=== PATIENT | female | born 1970 | race Caucasian/White ===

== ENCOUNTER 2023-08-17 14:13 | Outpatient (OUT) | payer OTHER, BC, SELFPAY ==
--- NOTE | 2023-08-17 | XR_ITS ---
The [address] [address] Patient Name: SILVIANO MELLO MRN: [id number] date: 1970 Sex: F Assigned Patient Location: Current Patient Location: Accession/Order Number: [id number] Exam Date: 08/17/2023 14:21 Report Date: 08/18/2023 08:09 At the request of: PAO DAVIDSON Procedure: XR foot LT min 3V PROCEDURE: XR foot LT min 3V HISTORY: LEFT FOOT PAIN ; acute posterior plantar/heel pain since running 5 days ago COMPARISON: None. FINDINGS: BONES:No fracture, acute abnormality, or significant arthropathy. SOFT TISSUES:No visible soft tissue swelling. EFFUSION:None visible. OTHER: Negative. XR/XR foot LT min 3V IMPRESSION: 1. No abnormal or suspicious findings to account for patient's symptoms. Electronically authenticated by: RICK PALENCIA Date: 08/18/2023 08:09
== END 2023-08-17 14:14 | disposition home or self-care (01) ==
PROVIDERS: Visit Provider Podiatrist Foot & Ankle Surgery
DX: M84.375A Stress fracture, left foot, initial encounter for fracture (principal); M79.672 Pain in left foot
CPT/HCPCS: 73630

== ENCOUNTER 2023-08-22 07:42 | Outpatient (OUT) | payer OTHER, BC, SELFPAY ==
--- NOTE | 2023-08-22 07:44 | MR_ITS ---
The [address] [address] Patient Name: SILVIANO MELLO MRN: [id number] date: 1970 Sex: F Assigned Patient Location: MRI Current Patient Location: MRI Accession/Order Number: [id number] Exam Date: 08/22/2023 07:50 Report Date: 08/22/2023 09:39 At the request of: PAO DAVIDSON Procedure: MR ankle LT wo con EXAM: MR ankle LT wo con HISTORY: Calcaneal Stress Fracture. Posterior ankle and heel pain after running. COMPARISON: Left ankle x-rays from 08/17/2023. TECHNIQUE: Multiplanar and multisequence imaging of the ankle, hindfoot, and midfoot was performed without contrast. FINDINGS: There is an acute nondisplaced fracture involving the plantar aspect of the calcaneus posteriorly with the linear fracture measuring 2 cm in AP dimension and 1.5 cm transversely. There is moderate to marked bone marrow edema in the adjacent calcaneus. There is also an area of linear decreased T1 and T2 signal within the central and medial aspect of the distal tibial metaphysis measuring approximately 1.9 cm in AP dimension and 1.7 cm transversely. There is no significant bone marrow edema adjacent to this area, but this likely relates to a healing stress or insufficiency fracture in the distal tibia as well. The fibula appears intact. There is no OCD lesion involving the talar dome. There is relative preservation of the joint spaces. The Achilles tendon is intact with a normal insertion onto the calcaneus. No well-defined peroneal tendon tear is evident. A small amount of fluid tracks along the peroneal tendons consistent with mild tenosynovitis. The flexor and extensor tendons are intact including the posterior tibialis tendon. A small amount of fluid tracks along the posterior tibialis tendon. No acute ligament tear is evident. The anterior talofibular ligament, calcaneofibular ligament, posterior talofibular ligament, and superficial and deep components of the deltoid ligament appear intact. There is no cystic or solid mass in the region of the tarsal tunnel. There is no acute abnormality involving the plantar fascia. MR/MR ankle LT wo con IMPRESSION: 1. There is an acute nondisplaced incomplete fracture along the plantar aspect of the calcaneus posteriorly measuring 2 cm in AP dimension and 1.5 cm transversely with moderate to marked adjacent bone marrow edema. 2. There also appears to be a nondisplaced incomplete linear fracture in the distal femoral metaphysis centrally and medially measuring 1.9 x 1.7 cm without adjacent significant bone marrow edema likely related to a largely healed stress or insufficiency fracture in this area. Correlation for pain in the distal tibia would be helpful. 3. No focal tendon tear or acute ligament tear. A small amount of fluid tracks along the peroneal tendons and posterior tibialis tendon suggesting mild tenosynovitis. Electronically authenticated by: CATINA ALEX Date: 08/22/2023 09:39
== END 2023-08-22 07:43 | disposition home or self-care (01) ==
LOC: MRI 07:42
PROVIDERS: Visit Provider Podiatrist Foot & Ankle Surgery
DX: M84.372A Stress fracture, left ankle, initial encounter for fracture (principal)
CPT/HCPCS: 73721

== ENCOUNTER 2023-09-08 20:09 | Outpatient (REF) | payer OTHER, BC, SELFPAY ==
[2023-09-14 11:10] LABS: Age Gdln ACOG Testing Note (.); HPV Aptima Negative (Negative); IGP, Aptima HPV, rfx 16/18,45 Note (.)
== END 2023-09-08 20:10 | disposition home or self-care (01) ==
LOC: LAB 20:09
PROVIDERS: Visit Provider Physician Assistant
DX: Z01.419 Encounter for gynecological examination (general) (routine) without abnormal findings (principal)
CPT/HCPCS: 87624; G0145

== ENCOUNTER 2023-09-09 08:15 | Outpatient (OUT) | payer OTHER, BC, SELFPAY ==
--- NOTE | 2023-09-09 08:22 | XR_ITS ---
The [address] [address] Patient Name: SILVIANO MELLO MRN: [id number] date: 1970 Sex: F Assigned Patient Location: [facility] Current Patient Location: [facility] Accession/Order Number: [id number] Exam Date: 09/09/2023 08:30 Report Date: 09/09/2023 09:02 At the request of: LUANA DUMONT Procedure: XR DEXA axial skeleton EXAMINATION: XR DEXA axial skeleton HISTORY: Postmenopausal State Z78.0 COMPARISON: No relevant comparison available. TECHNIQUE: Dual-energy X-ray absorptiometry (DXA) was performed. FINDINGS: SPINE ANALYSIS: Average bone mineral density is 1.261 g/cm2. T-score (standard deviation relative to young adult mean): 0.7 . HIP ANALYSIS: Lowest bone mineral density is within the left femoral neck, 0.914 g/cm2. T-score (standard deviation relative to young adult mean): -0.9 . XR/XR DEXA axial skeleton IMPRESSION: [employer] Classification: Normal - Low Fracture Risk Electronically authenticated by: RICK PALENCIA Date: 09/09/2023 09:02
--- OUTSIDE RECORDS SUMMARY | 2023-09-09 08:24 | XMS_ITS | CCD ---
Author Organization [facility] Care Team Providers Care Lead Mobile Developer Name Role Phone DR LAURIE LEONARD Attending Unavailable DR LAURIE LEONARD Consulting Unavailable DR LAURIE LEONARD Admitting Unavailable LAURIE LEONARD Referring Unavailable LAURIE LEONARD Referring Unavailable Allergies Allergy Classification Reported Allergen(s) Allergy Type Date of Onset Reaction(s) Facility (1 source) Penicillin Drug Allergy [facility] Repository Problems Active Problems Problem Classification Problem Date Documented Da te Episodic/Chronic Other upper respiratory infections (1 source) Acute sinusitis, unspecified; Translations: [ACUTE SINUSITIS UNSPECIFIED] Onset: 05-05-2021 Episodic Unclassified (2 sources) CONTACT W/AND (SUSP) EXPOS COVID-19; Translations: [CONTACT W/AND (SUSP) EXPOS COVID-19] Onset: 05-05-2021 Viral infection (1 source) COVID-19; Translations: [COVID-19] Onset: 05-05-2021 Past or Other Problems Problem Classification Problem Date Documented Da te Episodic/Chronic Unclassified (1 source) CONTACT W/AND (SUSP) EXPOS COVID-19; Translations: [CONTACT W/AND (SUSP) EXPOS COVID-19] Onset: 04-29-2021 Results Test Name Value Interpretation Reference Range Facility BI MAMMOGRAM SCREENING TOMOS YNTHESIS BILATERALon 05-20-2023 BI MAMMOGRAM SCREENING TOMOSYNTHESIS BILATERAL This is a summary report. The complete report is available in the patient's medical record. If you cannot access the medical record, please contact the sending organization for a detailed fax or copy. EXAMINATION: BI MAMMOGRAM SCREENING TOMOSYNTHESIS BILATERAL CLINICAL HISTORY:Screening for breast cancer COMPARISON: January 15, 2022 . RESULT: Digital mammography and 3D tomosynthesis of bilateral breasts was performed. Density: Scattered fibroglandular density [2] There is no suspicious mass, asymmetry, architectural distortion, or calcification. Typically benign calcifications. Overall appearance stable. IMPRESSION: BIRADS 2 - Benign Follow-up: Routine Screening Mamm Board Certified Radiologists. Accredited by the ACR and FDA. MAMMOGRAPHY IS VERY IMPORTANT TO YOUR HEALTH. THE [employer] [place] GUIDELINES RECOMMEND THAT WOMEN 40 YEARS OF AGE AND OLDER SHOULD HAVE A MAMMOGRAM EVERY YEAR. A REMINDER LETTER WILL BE SENT AT THE APPROPRIATE TIME. THIS FACILITY UTILIZES A REMINDER SYSTEM TO ENSURE ALL PATIENTS RECEIVE REMINDER NOTIFICATIONS AT THE APPROPRIATE TIME BASED ON THE RECOMMENDATIONS OF THIS EXAM. THIS INCLUDES REMINDERS FOR ROUTINE SCREENING MAMMOGRAMS, DIAGNOSTIC MAMMOGRAMS IN WHICH THE PATIENT IS ASKED TO RETURN FOR ADDITIONAL VIEWS, OR OTHER BREAST IMAGING INTERVENTIONS WHEN APPROPRIATE. THE PATIENT WILL BE PLACED IN THE APPROPRIATE REMINDER SYSTEM INCLUDING A REMINDER AT THE APPROPRIATE TIME FOR ANY PENDING ADDITIONAL VIEWS. TRANSCRIBED BY: ELECTRONICALLY SIGNED BY: Brennan Nguyen MD Normal Not Available BI US BREAST LIMITED LEFTon 05-11-2023 BI US BREAST LIMITED LEFT This is a summary report. The complete report is available in the patient's medical record. If you cannot access the medical record, please contact the sending organization for a detailed fax or copy. Please see right breast ultrasound report from this same date. IMPRESSION: BIRADS 2 - Benign TRANSCRIBED BY: ELECTRONICALLY SIGNED BY: Brennan Nguyen MD Normal Not Available BI US BREAST LIMITED RIGHTon 05-11-2023 BI US BREAST LIMITED RIGHT This is a summary report. The complete report is available in the patient's medical record. If you cannot access the medical record, please contact the sending organization for a detailed fax or copy. FINDINGS: Sonographic evaluation of both breasts was performed, correlation made with the same day mammogram and prior mammogram of January 15, 2022. LEFT BREAST: No suspicious cystic or solid mass lesions, distortion or ductal dilation. RIGHT BREAST: 11 o'clock 3 x 4 mm cyst. No suspicious cystic or solid mass lesions, distortion, or ductal dilatation. IMPRESSION: BIRADS 2 - Benign TRANSCRIBED BY: ELECTRONICALLY SIGNED BY: Brennan Nguyen MD Normal Not Available SCREENING MAMMOGRAM W/MICHELLE, BILATERAL*on 01-15-2022 SCREENING MAMMOGRAM W/MICHELLE, BILATERAL* COMPARISON: July 09, 2019, November 30, 2017 TECHNIQUE: 2D and 3D Tomosynthesis of the right and left breasts was performed. FINDINGS: Breast composition demonstrates scattered fibroglandular densities. Overall appearance is stable. No suspicious microcalcifications, asymmetry, architectural distortion, or associated features are present. Please see right breast ultrasound report. IMPRESSION: BIRADS 2: Benign mammogram. Board Certified Radiologist. Accredited by the ACR and FDA. MAMMOGRAPHY IS VERY IMPORTANT TO YOUR HEALTH. THE CURRENT [employer] [place] AND [employer] GUIDELINES RECOMMENDS ANNUAL MAMMOGRAPHY BEGINNING AT AGE 40 THIS FACILITY USES A REMINDER SYSTEM TO ENSURE ALL PATIENTS RECEIVE REMINDER NOTIFICATIONS AT THE APPROPRIATE TIME BASED ON THE RECOMMENDATIONS OF THIS EXAM. EXAM: RIGHT BREAST US FINDINGS: Sonographic evaluation of the right breast was performed, correlation made with the same day mammogram and prior mammograms of July 09, 2019, December 01, 2017. 3 mm cyst 11 o'clock location 2 cm from the nipple. No suspicious nodule or mass. Examination demonstrates no suspicious cystic or solid mass lesions, distortion or ductal dilatation. Echotexture is normal for this age. IMPRESSION: BIRADS 2: Benign mammogram Report reported and signed by Brennan Nguyen on 01/15/2022 1306 Normal [facility] US Breast Complete, Righton 01-15-2022 US Breast Complete, Right Please see the mammogram report from this same date Report reported and signed by Brennan Nguyen on 01/15/[address] [facility] Covid-19 PCR ([facility])on 04-02 SARS-CoV-2 (COVID-19) RNA TUSHAR+probe Ql (Unsp spec) Detected Critically abnormal NOT DETECTED [facility] Comment on above: Result Comment: This test is not yet approved or cleared by the [place] FDA. When there are no FDA-approved or cleared tests available, and other criteria are met, FDA can make tests available under an emergency access mechanism called an Emergency Use Authorization (EUA). The EUA for this test is supported by the [place] of Health and Human Service's (HHS's) declaration that circumstances exist to justify the emergency use of in vitro diagnostics for the detection and/or diagnosis of the virus that causes COVID-19. This EUA will remain in effect (meaning this test can be used) for the duration of the COVID-19 declaration justifying emergency of IVDs, unless it is terminated or revoked by FDA (after which the test may no longer be used). Performed By: #### [facility] #### [facility] [address] [place] [address] Dr. Nandini Herbert INFLUENZA A AND B AGon 04-29 INFLUANEGH SEE BELOW Normal [facility] Comment on above: Result Comment: Nega tive for Flu A protein angiten. Infection due to Flu A cannot be ruled out. Flu A angiten in the sample may be below the detection limit of the test. Performed By: #### I [facility] #### [facility] [address] [place] [address] Dr. Nandini Herbert INFLUBNEG SEE BELOW Normal [facility] Comment on above: Result Comment: Nega tive for Flu B protein antigen. Infection due to Flu B cannot be ruled out. Flu B antigen in the sample may be below the detection limit of the test. Performed By: #### I NFLU[facility] #### [facility] [address] [place] [address] Dr. Nadnini Herbert INFLUENZA A AG Negative Normal NEGATIVE SEE COMMENT [facility] Comment on above: Performed By: #### I NFLUAB #### [facility] [address] [place] [address] Dr. Nandini Herbert INFLUENZA B AG Negative Normal NEGATIVE SEE COMMENT [facility] Comment on above: Performed By: #### I NFLUAB #### [facility] [address] [place] [address] Dr. Nandini Herbert INTERNAL CONTROLS Within Normal Limits Normal Wi thin Normal Limits [facility] Comment on above: Performed By: #### I NFLUAB #### [facility] [address] [place] [address] Dr. Nandini Herbert Encounters Encounter Date Encounter Type Care Provider Facility Start: 05-20-2023 End: 05-21-2023 ambulatory LAURIE LEONARD Not Available Start: 04-29-2021 End: 04-29-[address] LAURIE LEONARD Facility: Payers Date Payer Category Payer Unknown [id number] 1970 Unknown [id number] 2.16.84 [id number] 1970 Unknown [id number] 2.16.84 [id number] 1970 Unknown [id number] 2.16.84 [id number] 1970 Unknown [id number] 2.16.84 [id number] 1960 Unknown [id number] Summary Purpose Family History No Family History Records FoundNo Family History Records FoundNo Family History Records Found Advance Directives No Advanced Directives Records FoundNo Advanced Directives Records FoundNo Advanced Directives Records Found Additional Source Comments INFORMATION SOURCE (unrecogn ized section and content) DATE CREATED AUTHOR 05/06/2021 [facility] DATE CREATED AUTHOR AUTHOR'S ORGANIZ ATION 01/30/2022 [facility] dical Specialist DATE CREATED AUTHOR AUTHOR'S ORGANIZ ATION 05/24/2023 [facility] dical Specialists EPIC FOR RECORDS PERTAINING TO PATIENTS WHO ARE OR HAVE BEEN ENROLLED IN A CHEMICAL DEPENDENCY/SUBSTANCEABUSE PROGRAM, SOME INFORMATION MAY BE OMITTED. This clinical summary was aggregated from multiple sources. Caution should be exercised in using it in the provision of clinical care. This summary normalizes information from multiple sources, and as a consequence, information in this document may materially change the coding, format and clinical context of patient data. In addition, data may be omitted in some cases. CLINICAL DECISIONS SHOULD BE BASED ON THE PRIMARY CLINICAL RECORDS. [facility]. provides no warranty or guarantee of the accuracy or completeness of information in this document.
== END 2023-09-09 08:16 | disposition home or self-care (01) ==
LOC: RAD 08:18
PROVIDERS: Visit Provider Physician Assistant
DX: Z78.0 Asymptomatic menopausal state (principal)
CPT/HCPCS: 77080

== ENCOUNTER 2023-10-04 09:56 | Outpatient (OUT) | payer OTHER, BC, SELFPAY ==
--- NOTE | 2023-10-04 | XR_ITS ---
The [address] [address] Patient Name: SILVIANO MELLO MRN: [id number] date: 1970 Sex: F Assigned Patient Location: Current Patient Location: Accession/Order Number: [id number] Exam Date: 10/04/2023 09:57 Report Date: 10/05/2023 12:20 At the request of: PAO DAVIDSON Procedure: XR calcaneus LT min 2V PROCEDURE: XR calcaneus LT min 2V HISTORY: LEFT FOOT PAIN COMPARISON: XR foot left 08/17/2023, MRI ankle left 08/22/2023 FINDINGS: BONES:Interval development of band of sclerosis extending cephalad from the plantar surface of the posterior aspect of the calcaneus. SOFT TISSUES:No visible soft tissue swelling. EFFUSION:None visible. OTHER: Negative. XR/XR calcaneus LT min 2V IMPRESSION: 1. Evidence of early healing changes involving nondisplaced posterior calcaneal fracture. Electronically authenticated by: RICK PALENCIA Date: 10/05/2023 12:20
--- OUTSIDE RECORDS SUMMARY | 2023-10-04 10:15 | XMS_ITS | CCD ---
Author Organization [facility] Care Team Providers Care Copyright Manager Name Role Phone DR LAURIE LEONARD Attending Unavailable DR LAURIE LEONARD Consulting Unavailable DR LAURIE LEONARD Admitting Unavailable LAURIE LEONARD Referring Unavailable LAURIE LEONARD Referring Unavailable LUANA DUMONT Attending Unavailable Allergies Allergy Classification Reported Allergen(s) Allergy Type Date of Onset Reaction(s) Facility (1 source) Penicillin Drug Allergy [facility] Repository Problems Active Problems Problem Classification [...] IS VERY IMPORTANT TO YOUR HEALTH. THE [employer] GUIDELINES RECOMMEND THAT WOMEN 40 [...] VERY IMPORTANT TO YOUR HEALTH. THE CURRENT [employer] AND [employer]IVE CANCER [...] by Brennan Nguyen on 01/15/2022 1306 Normal [facility] [employer] US Breast Complete, Righton 01-15-2022 US Breast Complete, Right Please see the mammogram report from this same date Report reported and signed by Brennan Nguyen on 01/15/2022 1307 Normal [facility] Specialist Covid-19 PCR ([facility])on 04-02 SARS-CoV-2 (COVID-19) RNA TUSHAR+probe Ql (Unsp spec) Detected Critically abnormal NOT DETECTED [facility] Comment on above: Result Comment: This test is not yet approved or cleared by the [place] FDA. When there are no FDA-approved or cleared tests available, and other criteria are met, FDA can make tests available under an emergency access mechanism called an Emergency Use Authorization (EUA). The EUA for this test is supported by the [place] of Health and Human Service's (HHS's) declaration [...] longer be used). Performed By: #### C VDTB #### [facility] [address] [place] [address] Dr. Nandini Herbert INFLUENZA A AND B AGon 04-29 INFLUANE SEE BELOW Normal [facility] Comment on above: Result Comment: Nega tive for Flu A protein angiten. Infection due to Flu A cannot be ruled out. Flu A angiten in the sample may be below the detection limit of the test. Performed By: #### I [facility] #### [facility] [address] [place] [address] Dr. [facility] SEE BEL[facility] Normal [facility] Comment on above: Result Comment: Nega tive for Flu B protein antigen. Infection due to Flu B cannot be ruled out. Flu B antigen in the sample may be below the detection limit of the test. Performed By: #### I NFLUAB #### [facility] [address] [place] [address] Dr. Nandini Herbert INFLUENZA A AG Negative Normal NEGATIVE SEE COMMENT [facility] Comment on above: Performed By: #### I NFLUAB #### [facility] [address] [place] [address] Dr. Nandini Herbert INFLUENZA B AG Negative Normal NEGATIVE SEE COMMENT [facility] Comment on above: Performed By: #### I NFLUAB #### [facility] [address] [place] [address] Dr. Nandini Herbert INTERNAL CONTROLS Within Normal Limits Normal Wi thin Normal Limits [facility] Comment on above: Performed By: #### I NFLUAB #### [facility] [address] [place] [address] Dr. Nandini Herbert Encounters Encounter Date Encounter Type Care Provider Facility Start: 09-08-2023 End: 09-08-2023 ambulatory LUANA DUMONT Not Available Start: 05-20-2023 End: 05-21-2023 ambulatory LAURIE LEONARD Not Available Start: 04-29-2021 End: 04-29-[address] LAURIE LEONARD Facility: Payers Date Payer Category Payer Unknown [id number] 1970 Unknown [id number] 2.16.84 [id number] 1970 Unknown [id number] 2.16.84 [id number] 1970 Unknown [id number] 2.16.84 [id number] 1970 Unknown [id number] 2.16.84 [id number] 1970 Unknown [id number] 2.16.84 [id number] 1960 Unknown [id number] Summary Purpose Family History No Family History Records FoundNo Family History Records FoundNo Family History Records Found Advance Directives No Advanced Directives Records FoundNo Advanced Directives Records FoundNo Advanced Directives Records Found Additional Source Comments INFORMATION SOURCE (unrecogn ized section and content) DATE CREATED AUTHOR 05/06/2021 [facility] DATE CREATED AUTHOR AUTHOR'S ORGANIZ ATION 01/30/2022 [facility] dical Specialist DATE CREATED AUTHOR AUTHOR'S ORGANIZ ATION 09/10/2023 [facility] dical Specialists [facility] FOR RECORDS PERTAINING TO PATIENTS WHO ARE [...] BE BASED ON THE PRIMARY CLINICAL RECORDS. [facility] [email or web address] [facility]. provides no warranty or guarantee of the accuracy or completeness of information in this document.
== END 2023-10-04 09:57 | disposition home or self-care (01) ==
LOC: EC 09:56
PROVIDERS: Visit Provider Podiatrist Foot & Ankle Surgery
DX: M79.672 Pain in left foot (principal); M84.375D Stress fracture, left foot, subsequent encounter for fracture with routine healing
CPT/HCPCS: 73650

== ENCOUNTER 2023-10-25 14:09 | Outpatient (OUT) | payer OTHER, BC, SELFPAY ==
--- NOTE | 2023-10-25 | XR_ITS ---
The [address] [address] Patient Name: SILVIANO MELLO MRN: [id number] date: 1970 Sex: F Assigned Patient Location: Current Patient Location: Accession/Order Number: [id number] Exam Date: 10/25/2023 14:20 Report Date: 10/25/2023 15:50 At the request of: PAO DAVIDSON Procedure: XR foot LT min 3V PROCEDURE: XR foot LT min 3V COMPARISON: 08/17/2023, 10/04/2023 HISTORY: LEFT FOOT PAIN FINDINGS: BONES:Stable focal sclerosis in the anterior calcaneus consistent with a stable healing fracture. No additional fracture or dislocation. No significant degenerative changes SOFT TISSUES:Negative. No visible soft tissue swelling. EFFUSION:None visible. OTHER: Negative. XR/XR foot LT min 3V IMPRESSION: Posterior calcaneal sclerosis consistent with a stable healing fracture Electronically authenticated by: SUSAN CRAFT Date: 10/25/2023 15:50
--- OUTSIDE RECORDS SUMMARY | 2023-10-25 14:13 | XMS_ITS | CCD ---
Author Organization [facility] Care Team Providers Care Manager Credit Risk Name Role Phone DR LAURIE LEONARD Attending Unavailable DR LAURIE LEONARD Consulting Unavailable DR LAURIE LEONARD Admitting Unavailable LAURIE LEONARD Referring Unavailable LAURIE LEONARD Referring Unavailable LUANA DUMONT Attending Unavailable Allergies Allergy Classification Reported Allergen(s) Allergy Type Date of Onset Reaction(s) Facility (1 source) Penicillin Drug Allergy The [facility] Repository Problems Active Problems Problem Classification [...] IS VERY IMPORTANT TO YOUR HEALTH. THE [employer] GUIDELINES RECOMMEND THAT WOMEN 40 [...] VERY IMPORTANT TO YOUR HEALTH. 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)on 04-02 SARS-CoV-2 (COVID-19) RNA TUSHAR+probe Ql (Unsp spec) Detected Critically abnormal NOT DETECTED The [facility] Comment on above: Result Comment: This test is not yet approved or cleared by the [place] FDA. When there are no FDA-approved or cleared tests available, and other criteria are met, FDA can make tests available under an emergency access mechanism called an Emergency Use Authorization (EUA). The EUA for this test is supported by the [place] of Health and Human Service's (HHS's) declaration [...] used). Performed By: #### C VDTB #### [facility] [address] [place] [address] Dr. Nandini Herbert INFLUENZA A AND B AGon 04-29 INFLUANE SEE BELOW Normal The [facility] Comment on above: Result Comment: Nega tive for Flu A protein angiten. Infection due to Flu A cannot be ruled out. Flu A angiten in the sample may be below the detection limit of the test. Performed By: #### I NFLUAB #### [facility] [address] [place] [address] Dr. [facility]ini [facility] SEE BELOW Normal The [facility] Comment on above: Result Comment: Nega tive for Flu B protein antigen. Infection due to Flu B cannot be ruled out. Flu B antigen in the sample may be below the detection limit of the test. Performed By: #### I NFLUAB #### [facility] [address] [place] [address] Dr. Nandini Herbert INFLUENZA A AG Negative Normal NEGATIVE SEE COMMENT The [facility] Comment on above: Performed By: #### I NFLUAB #### [facility] [address] [place] [address] Dr. Nandini Herbert INFLUENZA B AG Negative Normal NEGATIVE SEE COMMENT The [facility] Comment on above: Performed By: #### I NFLUAB #### [facility] [address] [place] [address] Dr. Nandini Herbert INTERNAL CONTROLS Within Normal Limits Normal Wi thin Normal Limits The [facility] Comment on above: Performed By: #### I NFLUAB #### [facility] [address] [place] [address] Dr. Nandini Herbert Encounters Encounter Date Encounter Type Care Provider Facility Start: 09-08-2023 End: 09-08-2023 ambulatory LUANA DUMONT Not Available Start: 05-20-2023 End: 05-21-2023 ambulatory LAURIE LEONARD Not Available Start: 04-29-2021 End: 04-29-[address] LAURIE LEONARD Facility: Payers Date Payer Category Payer Unknown [id number] 1970 Unknown [id number] 2.16.84 [id number] 1970 Unknown [id number] 2.16.84 [id number] 1970 Unknown [id number] 2.16.84 [id number] 1970 Unknown [id number] 2.16.84 [id number] 1970 Unknown [id number] 2.16.84 [id number] 1959 Unknown [id number] Summary Purpose Family History No Family History Records FoundNo Family History Records FoundNo Family History Records Found Advance Directives No Advanced Directives Records FoundNo Advanced Directives Records FoundNo Advanced Directives Records Found Additional Source Comments INFORMATION SOURCE (unrecogn ized section and content) DATE CREATED AUTHOR 05/06/2021 [facility] pital DATE CREATED AUTHOR AUTHOR'S ORGANIZ ATION 01/30/2022 [facility] dical Specialist DATE CREATED AUTHOR AUTHOR'S ORGANIZ ATION 09/10/2023 [facility] dical Specialists [facility] FOR RECORDS PERTAINING TO PATIENTS WHO ARE [...] BE BASED ON THE PRIMARY CLINICAL RECORDS. [facility] [employer] [facility]. provides no warranty or guarantee of the accuracy or completeness of information in this document.
== END 2023-10-25 14:10 | disposition home or self-care (01) ==
LOC: EC 14:09
PROVIDERS: Visit Provider Podiatrist Foot & Ankle Surgery
DX: M79.672 Pain in left foot (principal); S92.025D Nondisplaced fracture of anterior process of left calcaneus, subsequent encounter for fracture with routine healing
CPT/HCPCS: 73630

== ENCOUNTER 2023-11-22 13:03 | Outpatient (OUT) | payer OTHER, BC, SELFPAY ==
--- NOTE | 2023-11-22 | XR_ITS ---
The [address] [address] Patient Name: SILVIANO MELLO MRN: [id number] date: 1970 Sex: F Assigned Patient Location: Current Patient Location: Accession/Order Number: [id number] Exam Date: 11/22/2023 13:05 Report Date: 11/23/2023 07:19 At the request of: PAO DAVIDSON Procedure: XR foot LT min 3V PROCEDURE: XR foot LT min 3V COMPARISON: 10/25/2023 HISTORY: LEFT FOOT PAIN FINDINGS: BONES:Again demonstrated is focal sclerosis along the posterior inferior calcaneus likely representing a healing nondisplaced fracture. No new fracture or dislocation. No significant degenerative changes SOFT TISSUES:Negative. No visible soft tissue swelling. EFFUSION:None visible. OTHER: Negative. XR/XR foot LT min 3V IMPRESSION: Stable healing calcaneus fracture Electronically authenticated by: SUSAN CRAFT Date: 11/23/2023 07:19
--- OUTSIDE RECORDS SUMMARY | 2023-11-22 13:21 | XMS_ITS | CCD ---
Author Organization [facility] Care Team Providers Care Hurl Shaker Name Role Phone DR LAURIE LEONARD Attending Unavailable DR LAURIE LEONARD Consulting Unavailable DR LAURIE LEONARD Admitting Unavailable LAURIE LEONARD Referring Unavailable LAURIE LEONARD Referring Unavailable LUANA DUMONT Attending Unavailable Allergies Allergy Classification Reported Allergen(s) Allergy Type Date of Onset Reaction(s) Facility (1 source) Penicillin Drug Allergy The [facility] Repository Problems Active Problems Problem Classification [...] IS VERY IMPORTANT TO YOUR HEALTH. THE [employer] GUIDELINES RECOMMEND THAT WOMEN 40 [...] VERY IMPORTANT TO YOUR HEALTH. 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)on 04-02 SARS-CoV-2 (COVID-19) RNA TUSHAR+probe Ql (Unsp spec) Detected Critically abnormal NOT DETECTED The [facility] Comment on above: Result Comment: This test is not yet approved or cleared by the [place] FDA. When there are no FDA-approved or cleared tests available, and other criteria are met, FDA can make tests available under an emergency access mechanism called an Emergency Use Authorization (EUA). The EUA for this test is supported by the [place] of Health and Human Service's (HHS's) declaration [...] used). Performed By: #### C VDTB #### [facility] [address] [place] [address] Dr. Nandini Herbert INFLUENZA A AND B AGon 04-29 INFLUANE SEE BELOW Normal The [facility] Comment on above: Result Comment: Nega tive for Flu A protein angiten. Infection due to Flu A cannot be ruled out. Flu A angiten in the sample may be below the detection limit of the test. Performed By: #### I NFLUAB #### [facility] [address] [place] [address] Dr. Nandini [facility] SEE BELOW Normal The [facility] Comment on above: Result Comment: Nega tive for Flu B protein antigen. Infection due to Flu B cannot be ruled out. Flu B antigen in the sample may be below the detection limit of the test. Performed By: #### I NFLUAB #### [facility] [address] [place] [address] Dr. Nandini Herbert INFLUENZA A AG Negative Normal NEGATIVE SEE COMMENT The [facility] Comment on above: Performed By: #### I NFLUAB #### [facility] [address] [place] [address] Dr. Nandini Herbert INFLUENZA B AG Negative Normal NEGATIVE SEE COMMENT The [facility] Comment on above: Performed By: #### I NFLUAB #### [facility] [address] [place] [address] Dr. Nandiin Herbert INTERNAL CONTROLS Within Normal Limits Normal Wi thin Normal Limits The [facility] Comment on above: Performed By: #### I NFLUAB #### [facility] [address] [place] [address] Dr. Nandini Herbert Encounters Encounter Date Encounter Type Care Provider Facility Start: 09-08-2023 End: 09-08-2023 ambulatory LUANA DUMONT Not Available Start: 05-20-2023 End: 05-21-2023 ambulatory LAURIE LEONARD Not Available Start: 04-29-2021 End: 04-29-[address] LAURIE LEONARD Facility: Payers Date Payer Category Payer Unknown [id number] 1970 Unknown [id number] 2.16.84 [id number] 1970 Unknown [id number] 2.16.84 [id number] 1970 Unknown [id number] 2.16.84 [id number] 1970 Unknown [id number] 2.16.84 [id number] 1970 Unknown [id number] 2.16.84 [id number] 1959 Unknown [id number] Summary Purpose Family History No Family History Records FoundNo Family History Records FoundNo Family History Records Found Advance Directives No Advanced Directives Records FoundNo Advanced Directives Records FoundNo Advanced Directives Records Found Additional Source Comments INFORMATION SOURCE (unrecogn ized section and content) DATE CREATED AUTHOR 05/06/2021 [facility] pital DATE CREATED AUTHOR AUTHOR'S ORGANIZ ATION 01/30/2022 [facility] dical Specialist DATE CREATED AUTHOR AUTHOR'S ORGANIZ ATION 09/10/2023 [facility] dical Specialists [facility] FOR RECORDS PERTAINING TO PATIENTS [...] BE BASED ON THE PRIMARY CLINICAL RECORDS. [facility] [employer] [facility]. provides no warranty or guarantee of the accuracy or completeness of information in this document.
== END 2023-11-22 13:04 | disposition home or self-care (01) ==
LOC: EC 13:03
PROVIDERS: Visit Provider Podiatrist Foot & Ankle Surgery
DX: M84.375D Stress fracture, left foot, subsequent encounter for fracture with routine healing (principal)
CPT/HCPCS: 73630

== ENCOUNTER 2024-01-27 15:20 | Outpatient (OUT) | payer OTHER, BC, SELFPAY ==
--- NOTE | 2024-01-27 | XR_ITS ---
The [address] [address] Patient Name: SILVIANO MELLO MRN: [id number] date: 1970 Sex: F Assigned Patient Location: [facility] Current Patient Location: Accession/Order Number: [id number] Exam Date: 01/27/2024 15:25 Report Date: 01/28/2024 06:56 At the request of: LAURIE LEONARD Procedure: XR ankle LT min 3V PROCEDURE: XR ankle LT min 3V HISTORY: ANKLE SPRAIN S93.409A COMPARISON: None. FINDINGS: BONES:No fracture, acute abnormality, or significant arthropathy. SOFT TISSUES:Mild soft tissue swelling; lateral greater than medial. EFFUSION:None visible. OTHER: Negative. XR/XR ankle LT min 3V IMPRESSION: 1. Mild swelling suggesting soft tissue injury. 2. No acute bone abnormality or significant degenerative joint disease. Electronically authenticated by: RICK PALENCIA Date: 01/28/2024 06:56
--- OUTSIDE RECORDS SUMMARY | 2024-01-27 15:23 | XMS_ITS | CCD ---
Author Organization [facility] Care Team Providers Care Drill Operator Automatic Name Role Phone DR LAURIE LEONARD Attending Unavailable DR LAURIE LEONARD Consulting Unavailable DR LAURIE LEONARD Admitting Unavailable LAURIE LEONARD Referring Unavailable LAURIE LEONARD Referring Unavailable LUANA DUMONT Attending Unavailable Allergies Allergy Classification Reported Allergen(s) Allergy Type Date of Onset Reaction(s) Facility (1 source) Penicillin Drug Allergy The [facility] Repository Problems Active Problems Problem Classification [...] IS VERY IMPORTANT TO YOUR HEALTH. THE [place] CAN[employer] SOCIETY GUIDELINES RECOMMEND THAT WOMEN 40 [...] VERY IMPORTANT TO YOUR HEALTH. 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 When there are no FDA-approved or cleared tests available, and other criteria are met, FDA can make tests available under an emergency access mechanism called an Emergency Use Authorization (EUA). The EUA for this test is supported by the [employer] Professor of Health and Human Service's (HHS's) declaration [...] used). Performed By: #### C VDTB #### [facility] [address] [place] [address] Dr. Nandini Herbert INFLUENZA A AND B AGon 04-29 INFLUANE SEE BELOW Normal The [facility] Comment on above: Result Comment: Nega tive for Flu A protein angiten. Infection due to Flu A cannot be ruled out. Flu A angiten in the sample may be below the detection limit of the test. Performed By: #### I NFLUAB #### [facility] [address] [place] [address] Dr. Nandini Herbert INFLUBNUNIVERSAL HEALTH SERVICES SEE BELOW Normal The [facility] Comment on above: Result Comment: Nega tive for Flu B protein antigen. Infection due to Flu B cannot be ruled out. Flu B antigen in the sample may be below the detection limit of the test. Performed By: #### I NFLUAB #### [facility] [address] [place] [address] Dr. Nandini Herbert INFLUENZA A AG Negative Normal NEGATIVE SEE COMMENT The [facility] Comment on above: Performed By: #### I NFLUAB #### [facility] [address] [place] [address] Dr. Nandini Herbert INFLUENZA B AG Negative Normal NEGATIVE SEE COMMENT The [facility] Comment on above: Performed By: #### I NFLUAB #### [facility] [address] [place] [address] Dr. Nandini Herbert INTERNAL CONTROLS Within Normal Limits Normal Wi thin Normal Limits The [facility] Comment on above: Performed By: #### I NFLUAB #### [facility] [address] [place] [address] Dr. Nandini Herbert Encounters Encounter Date Encounter Type Care Provider Facility Start: 09-08-2023 End: 09-08-2023 ambulatory LUANA DUMONT Not Available Start: 05-20-2023 End: 05-21-2023 ambulatory LAURIE LEONARD Not Available Start: 04-29-2021 End: 04-29-[address] LAURIE LEONARD Facility: Payers Date Payer Category Payer Unknown [id number] 1970 Unknown [id number] 2.16.84 [id number] 1970 Unknown [id number] 2.16.84 [id number] 1970 Unknown [id number] 2.16.84 [id number] 1970 Unknown [id number] 2.16.84 [id number] 1970 Unknown [id number] 2.16.84 [id number] 1960 Unknown [id number] Summary Purpose Family History No Family History Records FoundNo Family History Records FoundNo Family History Records Found Advance Directives No Advanced Directives Records FoundNo Advanced Directives Records FoundNo Advanced Directives Records Found Additional Source Comments INFORMATION SOURCE (unrecogn ized section and content) DATE CREATED AUTHOR 05/06/2021 [facility] pital DATE CREATED AUTHOR AUTHOR'S ORGANIZ ATION 01/30/2022 [facility] dical Specialist DATE CREATED AUTHOR AUTHOR'S ORGANIZ ATION 09/10/2023 [facility] dical Specialists [facility] FOR RECORDS PERTAINING TO PATIENTS WHO ARE [...] BE BASED ON THE PRIMARY CLINICAL RECORDS. [facility] [employer] [facility]. provides no warranty or guarantee of the accuracy or completeness of information in this document.
== END 2024-01-27 15:21 | disposition home or self-care (01) ==
LOC: RAD 15:21
PROVIDERS: PCP Family Medicine; Visit Provider Family Medicine
DX: S93.409A Sprain of unspecified ligament of unspecified ankle, initial encounter (principal); M25.472 Effusion, left ankle
CPT/HCPCS: 73610

== ENCOUNTER 2024-03-14 13:54 | Outpatient (OUT) | payer OTHER, BC, SELFPAY ==
--- NOTE | 2024-03-14 14:01 | XR_ITS ---
[address] [address] Patient Name: SILVIANO MELLO MRN: [id number] date: 1970 Sex: F Assigned Patient Location: [facility] Current Patient Location: Accession/Order Number: [id number] Exam Date: 03/14/2024 14:03 Report Date: 03/17/2024 07:45 At the request of: PAO DAVIDSON Procedure: XR foot CUCO min 3V EXAMINATION: XR foot CUCO min 3V HISTORY: Bilateral Foot Pain COMPARISON: XR foot left 11/22/2023 FINDINGS: RIGHT FINDINGS: BONES: Tiny calcaneal plantar spur. No fracture, dislocation, bone lesion. SOFT TISSUES: No visible soft tissue swelling. OTHER: Negative. LEFT FINDINGS: BONES: No significant arthropathy or acute abnormality. SOFT TISSUES: No visible soft tissue swelling. OTHER: Negative. XR/XR foot CUCO min 3V IMPRESSION: RIGHT CONCLUSION: 1. No acute bone abnormality or significant degenerative joint disease. LEFT CONCLUSION: 1. No acute bone abnormality or significant degenerative joint disease. Complete healing of prior calcaneal fracture. Electronically authenticated by: RICK PALENCIA Date: 03/17/2024 07:45
== END 2024-03-14 13:55 | disposition home or self-care (01) ==
LOC: RAD 13:54
PROVIDERS: PCP Family Medicine; Visit Provider Podiatrist Foot & Ankle Surgery
DX: M79.672 Pain in left foot (principal); M79.671 Pain in right foot
CPT/HCPCS: 73630

== ENCOUNTER 2024-03-16 07:59 | Outpatient (RCR) | payer OTHER, BC, SELFPAY | END 2024-05-01 15:03 | disposition home or self-care (01) | LOC: PT 07:59 | PROVIDERS: PCP Family Medicine; Visit Provider Podiatrist Foot & Ankle Surgery | DX: M76.61 Achilles tendinitis, right leg (principal) | CPT/HCPCS: 97033; 97110; 97161 ==

== ENCOUNTER 2024-05-02 11:43 | Outpatient (RCR) | payer OTHER, BC, SELFPAY | END 2024-05-07 15:01 | disposition home or self-care (01) | LOC: PT 11:43 | PROVIDERS: PCP Family Medicine; Visit Provider Podiatrist Foot & Ankle Surgery | DX: M76.61 Achilles tendinitis, right leg (principal) ==

== ENCOUNTER 2024-05-07 08:35 | Outpatient (OUT) | payer OTHER, BC, SELFPAY ==
--- NOTE | 2024-05-07 | XR_ITS ---
The [address] [address] Patient Name: SILVIANO MELLO MRN: [id number] date: 1970 Sex: F Assigned Patient Location: Current Patient Location: Accession/Order Number: [id number] Exam Date: 05/07/2024 08:45 Report Date: 05/07/2024 14:10 At the request of: RICK GAYLE Procedure: XR knee RT 4V EXAM: Right knee HISTORY: . RIGHT KNEE PAIN . COMPARISON: None. TECHNIQUE: 4 views FINDINGS: No fracture or dislocation of the right knee is noted. Minimal spurring is noted involving the knee joint. There is slight fullness in the suprapatellar region. XR/XR knee RT 4V IMPRESSION: 1. Early arthritic changes of the right knee. 2. Questionable small suprapatellar effusion. Electronically authenticated by: SUSAN EDWARDS Date: 05/07/2024 14:10
== END 2024-05-07 08:36 | disposition home or self-care (01) ==
LOC: EC 08:36
PROVIDERS: PCP Family Medicine; Visit Provider Orthopaedic Surgery
DX: M25.561 Pain in right knee (principal); M25.461 Effusion, right knee
CPT/HCPCS: 73564

== ENCOUNTER 2024-05-21 12:44 | Outpatient (OUT) | payer OTHER, BC, SELFPAY ==
--- NOTE | 2024-05-21 12:48 | MR_ITS ---
The [address] [address] Patient Name: SILVIANO MELLO MRN: [id number] date: 1970 Sex: F Assigned Patient Location: MRI Current Patient Location: MRI Accession/Order Number: [id number] Exam Date: 05/21/2024 12:55 Report Date: 05/21/2024 13:44 At the request of: RICK GAYLE Procedure: MR knee RT wo con EXAM: MR knee RT wo con REASON FOR EXAM: right knee pain. TECHNIQUE: Multiplanar, multisequence imaging of the right knee was performed without contrast COMPARISON: Radiographs 05/07/2024. FINDINGS: Laterally, the iliotibial band, fibular collateral ligament, popliteus tendon and biceps tendon are intact. The ACL is intact. The lateral meniscus demonstrates free edge radial tear of the posterior horn with horizontal undersurface oblique component (series 8, image 21; series 6, image 20). No displaced meniscal fragment. Low-grade chondrosis of the lateral compartment. Medially, the medial collateral ligament is intact. Mild periligamentous edema is likely reactive. The PCL is intact. The medial meniscus demonstrates complete radial tear at the posterior horn of the root horn attachment. Mild meniscal extrusion. Intermediate grade chondrosis of the medial compartment. The extensor mechanism is intact. Intermediate grade chondrosis of the patellofemoral cartilage. The bone marrow signal is without fracture. Small joint effusion. The regional musculature is without muscle strain or tendon tear. MR/MR knee RT wo con IMPRESSION: 1. Complete radial tear of the posterior horn root attachment the medial meniscus. 2. Lateral meniscus tear. 3. Moderate tricompartmental chondrosis. 4. Joint effusion Electronically authenticated by: ENRIQUETA LY Date: 05/21/2024 13:44
--- OUTSIDE RECORDS SUMMARY | 2024-05-21 12:53 | XMS_ITS | CCD ---
Author Organization [facility] Care Team Providers Care Music Director Name Role Phone DR LAURIE LEONARD Attending Unavailable HOY, DR SULLIVAN Consulting Unavailable HOY, DR SULLIVAN Admitting Unavailable HOYLAURIE M Referring Unavailable HOYLAURIE M Referring Unavailable JULIALUANA Attending Unavailable ARNOLDLIZZETTE Referring Unavailable Mast, Jonn Admitting Unavailable Mast, Jonn Attending Unavailable Mast, Jonn Primary Care Unavailable Pilo DPM, Cachorro Kang Attending Unavailab le Pilo DPM, Cachorro Kang Attending Unavailab le Allergies Allergy Classification Reported Allergen(s) Allergy Type Date of Onset Reaction(s) Facility (2 sources) Penicillin; Translations: [penicillin] Drug Allergy [facility] Repository (1 source) Penicillin Drug Allergy 04-27-2024 [facility] Repository Problems Active Problems Problem Classification Problem Date Documented Date Episodic/Chronic Other screening for suspected conditions (not mental disorders or infectious disease) (2 sources) Encounter for screening for diseases of the blood and blood-forming organs and certain disorders involving the immune mechanism; Translations: [Encounter for screening for cardiovascular disorders] Onset: 04-27-2024 Episodic Other upper respiratory infections (1 source) Acute sinusitis, unspecified; Translations: [ACUTE SINUSITIS UNSPECIFIED] Onset: 05-05-2021 Episodic Residual codes; unclassified (1 source) Pain, unspecified; Translations: [Pain, unspecified] Onset: 04-03-2024 Episodic Unclassified (2 sources) CONTACT W/AND (SUSP) EXPOS COVID-19; Translations: [CONTACT W/AND (SUSP) EXPOS COVID-19] Onset: 05-05-2021 Viral infection (1 source) COVID-19; Translations: [COVID-19] Onset: 05-05-2021 Past or Other Problems Problem Classification Problem Date Documented Da te Episodic/Chronic Unclassified (1 source) CONTACT W/AND (SUSP) EXPOS COVID-19; Translations: [CONTACT W/AND (SUSP) EXPOS COVID-19] Onset: 04-29-2021 Results Test Name Value Interpretation Reference Range Facility [facility] with reflex to A1Con Albumin [Mass/Vol] 4.3 g/dL Normal 3.5-5.7 [facility] Comment on above: Performed By: #### C BC, CMP wRFX A1C, LIPID, EBS A1C #### [address] Albumin/Globulin [Mass ratio] 1.7 {ratio} Normal [facility] Comment on above: Performed By: #### C BC, CMP wRFX A1C, LIPID, EBS A1C #### [address] ALP [Catalytic activity/Vol] 56 U/L Normal 34-104 [facility] Comment on above: Performed By: #### C BC, CMP wRFX A1C, LIPID, EBS A1C #### [address] ALT [Catalytic activity/Vol] 14 U/L Normal 7-52 [facility] Comment on above: Performed By: #### C BC, CMP wRFX A1C, LIPID, EBS A1C #### [address] Anion gap [Moles/Vol] 9.7 mmol/L Normal 6.0-15.0 [facility] Comment on above: Performed By: #### C BC, CMP wRFX A1C, LIPID, EBS A1C #### [place] [address] [place] AST [Catalytic activity/Vol] 16 U/L Normal 13-39 [facility] Comment on above: Performed By: #### C BC, CMP wRFX A1C, LIPID, EBS A1C #### [address] Bilirubin [Mass/Vol] 0.5 mg/dL Normal 0.3-1.0 [facility] Comment on above: Performed By: #### C BC, CMP wRFX A1C, LIPID, EBS A1C #### [facility] [address] [place] [address] [place] Calcium [Mass/Vol] 9.8 mg/dL Normal 8.6-10.3 [facility] Comment on above: Performed By: #### C BC, CMP wRFX A1C, LIPID, EBS A1C #### [facility] [address] [place] [address] [place] Chloride [Moles/Vol] 107 mmol/L Normal 98-107 [facility] Comment on above: Performed By: #### C BC, CMP wRFX A1C, LIPID, EBS A1C #### [facility] [address] [place] [address] [place] CO2 [Moles/Vol] 30.0 mmol/L Normal 21.0-31.0 [facility] Comment on above: Performed By: #### C BC, CMP wRFX A1C, LIPID, EBS A1C #### [facility] [address] Creatinine [Mass/Vol] 0.81 mg/dL Normal 0.60-1.20 [facility] Comment on above: Performed By: #### C BC, CMP wRFX A1C, LIPID, EBS A1C #### [facility] [address] [place] [address] [place] GFR/1.73 sq M.predicted MDRD (S/P/Bld) [Vol rate/Area] mL/min/{1.73_m2} Normal [facility] Comment on above: Performed By: #### C BC, CMP wRFX A1C, LIPID, EBS A1C #### [facility] [address] [place] [address] [place] Globulin (S) [Mass/Vol] 2.6 g/dL Normal [facility] Comment on above: Performed By: #### C BC, CMP wRFX A1C, LIPID, EBS A1C #### [facility] [address] [place] [address] [place] Glucose [Mass/Vol] 101 mg/dL High 70-100 [facility] Comment on above: Result Comment: ADA recommended reference range Performed By: #### C BC, CMP wRFX A1C, LIPID, EBS A1C #### [address] Potassium [Moles/Vol] 4.7 mmol/L Normal 3.5-5.1 [facility] Comment on above: Performed By: #### C BC, CMP wRFX A1C, LIPID, EBS A1C #### [address] Protein [Mass/Vol] 6.9 g/dL Normal 6.4-8.9 [facility] Comment on above: Performed By: #### C BC, CMP wRFX A1C, LIPID, EBS A1C #### [address] Sodium [Moles/Vol] 142 mmol/L Normal 136-145 [facility] Comment on above: Performed By: #### C BC, CMP wRFX A1C, LIPID, EBS A1C #### [address] Urea nitrogen [Mass/Vol] 9 mg/dL Normal 7-25 [facility] Comment on above: Performed By: #### C BC, CMP wRFX A1C, LIPID, EBS A1C #### [address] Complete Blood Count Auto Di ffon 04-27-2024 Basophils (Bld) [#/Vol] 0.0 10*3/uL Normal 0.0-0.2 [facility] Comment on above: Result Comment: PERF ORMED BY: [place] [address] PATHOLOGIST [employer] SANDY ALSTON M.D. Performed By: #### C BC, CMP wRFX A1C, LIPID, EBS A1C #### [address] Basophils/100 WBC (Bld) 0.4 % Normal . [facility] Comment on above: Performed By: #### C BC, CMP wRFX A1C, LIPID, EBS A1C #### [place] [id number] [place] Eosinophils (Bld) [#/Vol] 0.1 10*3/uL Normal 0.0-0.45 [facility] Comment on above: Performed By: #### C BC, CMP wRFX A1C, LIPID, EBS A1C #### [address] Eosinophils/100 WBC (Bld) 2.1 % Normal . [facility] Comment on above: Performed By: #### C BC, CMP wRFX A1C, LIPID, EBS A1C #### [address] Erythrocyte distribution width (RBC) [Ratio] 14.2 % Normal 11.9-15.3 [facility] Comment on above: Performed By: #### C BC, CMP wRFX A1C, LIPID, EBS A1C #### [address] Hematocrit (Bld) [Volume fraction] 43.3 % Normal 34.0-46.4 [facility] Comment on above: Performed By: #### C BC, CMP wRFX A1C, LIPID, EBS A1C #### [address] Hemoglobin (Bld) [Mass/Vol] 14.3 g/dL Normal 11.8-15.4 [facility] Comment on above: Performed By: #### C BC, CMP wRFX A1C, LIPID, EBS A1C #### [place] [address] [place] Lymphocytes (Bld) [#/Vol] 2.1 10*3/uL Normal 1.00-4.8 [facility] Comment on above: Performed By: #### C BC, CMP wRFX A1C, LIPID, EBS A1C #### [place] [address] [place] Lymphocytes/100 WBC (Bld) 44.7 % Normal . [facility] Comment on above: Performed By: #### C BC, CMP wRFX A1C, LIPID, EBS A1C #### [address] MCH (RBC) [Entitic mass] 30.7 pg Normal 24.7-34.3 [facility] Comment on above: Performed By: #### C BC, CMP wRFX A1C, LIPID, EBS A1C #### [address] MCV (RBC) [Entitic vol] 93.4 fL Normal 80-100 [facility] Comment on above: Performed By: #### C BC, CMP wRFX A1C, LIPID, EBS A1C #### [address] Mean Corpuscular HGB Conc 32.9 g/dL Normal 32.0-35.0 [facility] Comment on above: Performed By: #### C BC, CMP wRFX A1C, LIPID, EBS A1C #### [address] Monocytes (Bld) [#/Vol] 0.5 10*3/uL Normal 0.0-0.8 [facility] Comment on above: Performed By: #### C BC, CMP wRFX A1C, LIPID, EBS A1C #### [address] Monocytes/100 WBC (Bld) 10.0 % Normal . [facility] Comment on above: Performed By: #### C BC, CMP wRFX A1C, LIPID, EBS A1C #### [address] Neutrophils (Bld) [#/Vol] 2.0 10*3/uL Normal 1.8-7.7 [facility] Comment on above: Performed By: #### C BC, CMP wRFX A1C, LIPID, EBS A1C #### [address] Neutrophils/100 WBC (Bld) 42.8 % Normal . [facility] Comment on above: Performed By: #### C BC, CMP wRFX A1C, LIPID, EBS A1C #### [address] NRBC% 0.2 /100{WBC} Normal 0-0.5 [facility] Comment on above: Performed By: #### C BC, CMP wRFX A1C, LIPID, EBS A1C #### [facility] [address] Platelet mean volume (Bld) [Entitic vol] 8.4 fL Normal 6.3-10.7 [facility] Comment on above: Performed By: #### C BC, CMP wRFX A1C, LIPID, EBS A1C #### [facility] [address] Platelets (Bld) [#/Vol] 249 10*3/uL Normal 150-450 [facility] Comment on above: Performed By: #### C BC, CMP wRFX A1C, LIPID, EBS A1C #### [facility] [address] RBC (Bld) [#/Vol] 4.64 10*6/uL Normal 3.60-5.[address] [facility] Comment on above: Performed By: #### C BC, CMP wRFX A1C, LIPID, EBS A1C #### [facility] [address] WBC (Bld) [#/Vol] 4.7 10*3/uL Normal 3.8-11.6 [facility] Comment on above: Performed By: #### C BC, CMP wRFX A1C, LIPID, EBS A1C #### [address] EBS A1C with Estimated Elle wagner 04-27-2024 Glucose [Mass/Vol] 114 mg/dL Normal [facility] Comment on above: Result Comment: PERF ORMED BY: [place] [address] PATHOLOGIST [employer] SANDY ALSTON M.D. Performed By: #### C BC, CMP wRFX A1C, LIPID, EBS A1C #### [address] HbA1c (Bld) [Mass fraction] 5.6 % Normal 4.3-5.6 [facility] Comment on above: Result Comment: Incr eased risk for diabetes: 5.7 - 6.4 diabetes: >6.4 glycemic control for adults with diabetes: <7.0 Performed By: #### C BC, CMP wRFX A1C, LIPID, EBS A1C #### [facility] [address] [place] [id number] [facility] Lipid Panelon 04-27-2024 Cholesterol [Mass/Vol] 191 mg/dL Normal 140-200 [facility] Comment on above: Result Comment: Chol less than 200 mg/dl low risk Chol 201-239 mg/dl borderline risk Chol 240 mg/dl and greater high risk Performed By: #### C BC, CMP wRFX A1C, LIPID, EBS A1C #### [facility] [address] Cholesterol in HDL [Mass/Vol] 67 mg/dL Normal 23-92 [facility] Comment on above: Result Comment: HDL CHOL ATP-III CLASSIFICATION Cardiovascular Risk HDL > or equal to 60 mg/dL LOW HDL < 40 mg/dL HIGH Performed By: #### C BC, CMP wRFX A1C, LIPID, EBS A1C #### [facility] [address] Cholesterol.total/ Cholesterol in HDL [Mass ratio] 2.9 {ratio} Normal <5.0 [facility] Comment on above: Result Comment: PERF ORMED BY: [place] [address] PATHOLOGIST [employer] SANDY ALSTON M.D. Performed By: #### C BC, CMP wRFX A1C, LIPID, EBS A1C #### [facility] [address] [place] [id number] [place] LDL Cholesterol,Calcul ated 102 mg/dL High 0-100 [facility] Comment on above: Result Comment: LDL ATP III CLASSIFICATION LDL less than 100 mg/dL Optimal LDL 100-129 mg/dL Near or above optimal LDL 130-159 mg/dL Borderline high LDL 160-189 mg/dL High LDL greater than 189 mg/dL Very high Performed By: #### C BC, CMP wRFX A1C, LIPID, EBS A1C #### [facility] [address] [place] [address] [facility] Triglyceride w/Reflex 111 mg/dL Normal 0-149 [facility] Comment on above: Result Comment: TRIG ATP III CLASSIFICATION TRIG less than 150 mg/dL Normal TRIG 150-199 mg/dL Borderline high TRIG 200-500 mg/dL High TRIG greater than 500 mg/dL Very high Standard traceable to the Center for Disease Conrtrol and Prevention (CDC) test method. Performed By: #### C BC, CMP wRFX A1C, LIPID, EBS A1C #### [facility] [address] [place] [address] [facility] VLDL CHOLESTEROL 22 mg/dL Normal [facility] Comment on above: Performed By: #### C BC, CMP wRFX A1C, LIPID, EBS A1C #### [facility] [address] [place] [address] [facility] XR KNEE RT MIN 4 VWSon 04-03 XR KNEE RT MIN 4 VWS XR KNEE RT MIN 4 VWS Right Knee: 04/03/2024 3:36 PM. Reason for study: Pain. Comparison studies: None. Technique: AP, oblique, skyline and lateral views of right knee were obtained. Findings: Alignment is unremarkable. No significant femorotibial compartment joint space narrowing. Possible trace knee joint effusion. No acute fracture or dislocation. No significant patellofemoral joint space narrowing. Impression: No acute fracture or dislocation. Finalized by Donita Valencia MD on 04/03/2024 3:52 PM Normal [facility] BI MAMMOGRAM SCREENING TOMOS YNTHESIS BILATERALon 05-20-2023 [...] IS VERY IMPORTANT TO YOUR HEALTH. THE [employer] GUIDELINES RECOMMEND THAT WOMEN 40 [...] VERY IMPORTANT TO YOUR HEALTH. THE CURRENT [place] CANCER [...] by Brennan Nguyen on 01/15/2022 1306 Normal [facility] Driller'S Assistant US Breast Complete, Righton 01-15-2022 US Breast Complete, Right Please see the mammogram report from this same date Report reported and signed by Brennan Nguyen on 01/15/2022 1307 Normal [facility] Covid-19 PCR (CVDTB)on 04-02 SARS-CoV-2 (COVID-19) RNA TUSHAR+probe Ql (Unsp spec) Detected Critically abnormal NOT DETECTED [facility] Comment on above: Result Comment: This test is not yet approved or cleared by the [place] FDA. When there are no FDA-approved or cleared tests available, and other criteria are met, FDA can make tests available under an emergency access mechanism called an Emergency Use Authorization (EUA). The EUA for this test is supported by the Trenching Machine Operator of Health and Human Service's (HHS's) declaration [...] longer be used). Performed By: #### [facility] #### [facility] [address] [place] [address] Dr. Nandini Herbert INFLUENZA A AND B AGon 04-29 INFLUANEGH SEE BELOW Normal [facility] Comment on above: Result Comment: Nega tive for Flu A protein angiten. Infection due to Flu A cannot be ruled out. Flu A angiten in the sample may be below the detection limit of the test. Performed By: #### I NFLUAB #### [facility] [address] [place] [address] [address] Nandini Herbert INFLUBNEG SEE BELOW Normal [facility] Comment on above: Result Comment: Nega tive for Flu B protein antigen. Infection due to Flu B cannot be ruled out. Flu B antigen in the sample may be below the detection limit of the test. Performed By: #### I NFLUAB #### [facility] [address] [place] [address] Dr. Nandini Herbert INFLUENZA A AG Negative Normal NEGATIVE SEE COMMENT [facility] Comment on above: Performed By: #### I NFLUAB #### [facility] [address] [place] [address] Dr. Nandini Herbert INFLUENZA B AG Negative Normal NEGATIVE SEE COMMENT [facility] Comment on above: Performed By: #### I NFLUAB #### [facility] [address] [place] [address] Dr. Nandini Herbert INTERNAL CONTROLS Within Normal Limits Normal Wi thin Normal Limits [facility] Comment on above: Performed By: #### I NFLUAB #### [facility] [address] [place] [address] Dr. Nandini Herbert Encounters Encounter Date Encounter Type Care Provider Facility Start: 05-17-2024 ambulatory Cachorro Daigle DPM F acility:[facility] Start: 04-27-2024 End: 04-27-2024 ambulatory Jonn Mast Facility:[facility] Start: 04-16-2024 End: 04-16-2024 ambulatory Cachorro Daigle DPM Facility:[facility] Start: 04-03-2024 End: 04-03-2024 ambulatory LIZZETTE crespo Start: 09-08-2023 End: 09-08-2023 ambulatory LUANA DUMONT Not Available Start: 05-20-2023 End: 05-21-2023 ambulatory LAURIE LEONARD Not Available Start: 04-29-2021 End: 04-29-[address] LAURIE LEONARD Facility: Payers Date Payer Category Payer Self-pay 2024 Unknown [id number] 2024 Unknown 2022 Unknown [id number] 1970 Unknown [id number] 2.16.84 [id number] 1969 Unknown [id number] 2.16.84 [id number] 1969 Unknown [id number] 2.16.84 [id number] 1969 Unknown [id number] 2.16.84 [id number] 1969 Unknown [id number] 2.16.84 [id number] 1969 Unknown [id number] 2.16.8 [id number] 1969 Unknown [id number] 2.16. [id number] 1969 Unknown [id number] 2.16. [id number] 1959 Unknown [id number] Unknown [id number] 2.16.8 [id number] Clinical Note 04-16-2024 Note Date & Type Note Facility 04-16-2024 Note Chief Complaint New Patient, [facility], right 3-5 toe numbness History of Present Illness Patient presents today complaining of bilateral painful right greater than left forefoot which is aching and throbbing in nature and sometimes stinging and burning in recent months. Patient relates that this is most troublesome in shoe gear wear and when ambulating and weightbearing although sometimes without shoe gear as well. Patient denies overt trauma to the area that they can remember. Patient relates that they have tried [id number] pain relievers, padding, and modification of shoe gear as well as modification of activity levels to no avail. Has seen Dr. Leonel Hernández in the past. Referred here for further evaluation. Has undergone conservative care and has undergone radiographs of the right foot already. She is also requesting referral to orthopedic surgery for her chronic right knee pain. Has a history of sciatica-like symptoms and pain radiating from her back down to her foot as well she relates. Review of Systems Constitutional Head Nose Mouth Throat Cardio/Respiratory Hematologic Chills: No Headache: No Shortness of Breath: No History of DVT: No Fever: No Sore Throat: No Chest Pain: No History of Claudication: No Ear Pain: No Palpitation: No History of Aneurysm: No History of Gangrene: No Genitourinary Musculoskeletal Psychiatric Vascular Burning: No Muscle Weakness: No Anxiety: No Blood Disorder: No Pain: No Joint Pain: Yes Depression: No Numbness: Yes Gastrointestinal Dermatology Rheumatologic Problems: No Rash: No History of Rheumatic Arthritis: No Pain: No Pruritus: No History of Gout: No History of Lupus: No Physical Exam Vitals & Measurements HR: 66 (Peripheral) BP: 127/84 Orthopedic: Extrinsic and intrinsic musculature of the foot are grossly normal with strengths of 5/5 all movers of the foot and ankle. Minimal pain to passive or active range of motion bilateral and free of overt joint crepitation. Positive silfverskiold test bilateral. Right ankle decreased range of motion with no pain or crepitus on range of motion Negative pain to palpation of the plantar aspect of MPJ's. Positive pain to deep palpation of right third intermetatarsal space. This is exacerbated with medial to lateral compression the metatarsal heads. Negative palpable tenderness to dorsal and plantar metatarsal shafts and heads Dermatologic: Skin is within normal limits Negative for overt rashes or irregular pigmented lesions. Skin turgor normal. Neurologic: Gross and epicritic sensation intact bilateral. Protective sensation intact as measured with Man Maricarmen monofilament. Gross motor intact bilateral. Achilles and Patellar reflexes within normal limits 2/4 bilateral, negative babinski, hallux downgoing. Negative tinels/valliex upon neural light percussion. Positive tingling, burning to associated toes when manually palpated and with squeeze test of the associated metatarsal heads as mentioned above. Positive straight leg raise test on right Vascular: Pedal Pulses palpable at Dorsalis Pedis and Posterior Tibial Bilateral. Capillary fill time approximately 3 seconds bilateral at toes when leg elevated. Negative for significant edema in either lower extremity Skin temp warm to cool proximal to distal bilateral. Additional Vitals No qualifying data available. Assessment/Plan 1. Lumbar radiculopathy EMG ordered to rule out lumbar to colopathy. 2. Plantar neuroma of right foot 3. Metatarsalgia, right foot 4. Neuritis of right foot 5. Achilles tendon contracture, right -E/M with time spent with patient dedicated to discussion of pathogenesis and treatment options for patient's problems including padding, offloading, stretching exercises, protective boot wearing, possible diagnostic injection -Radiographs reviewed as above. -Dispensed orthotics with metatarsal pad addition with instructions on break-in time. Discussed diagnostic injection. Deferred until after EMG and MRI. -Discussion of transitioning to surgery for excision if symptoms don't improve vs attempting serial injections. She relates understanding. Referral to orthopedics for right knee pain. Peripheral neuropathy panel ordered. *Return to clinic after obtaining EMG and MRI. Obtain and print EMG and MRI from outside facility. Medical Decision Making Given all the above, there is low risk of M/M associated with today's encounter and treatment plan. Chronic conditions NOT treated during this visit that affected my overall medical decision making: [] Treatment plans discussed but not opted for at this time: [] Prescribed medication that requires intensive monitoring for toxicity: [] I have reviewed the patient?s medication list for medication interactions/contraindications and/or for upcoming procedures: [yes Time Spent with the Patient I have personally spent [45] minutes (more content not included)... [facility] Summary Purpose Family History No Family History [...] DATE CREATED AUTHOR AUTHOR'S ORGANIZ ATION 01/30/2022 [facility] DATE CREATED AUTHOR AUTHOR'S ORGANIZ ATION 09/10/2023 [facility] EPIC DATE CREATED AUTHOR AUTHOR'S ORGANIZ ATION 04/05/2024 [facility] DATE CREATED AUTHOR AUTHOR'S ORGANIZ ATION 04/28/2024 [facility] DATE CREATED AUTHOR AUTHOR'S ORGANIZ ATION 05/20/2024 [facility] FOR RECORDS PERTAINING TO PATIENTS WHO ARE [...] BE BASED ON THE PRIMARY CLINICAL RECORDS. [employer] provides no warranty or guarantee of the accuracy or completeness of information in this document.
== END 2024-05-21 12:45 | disposition home or self-care (01) ==
LOC: MRI 12:44
PROVIDERS: PCP Family Medicine; Visit Provider Orthopaedic Surgery
DX: M25.561 Pain in right knee (principal); S83.241A Other tear of medial meniscus, current injury, right knee, initial encounter; S83.281A Other tear of lateral meniscus, current injury, right knee, initial encounter; M25.461 Effusion, right knee
CPT/HCPCS: 73721

== ENCOUNTER 2024-05-31 12:29 | Outpatient (OUT) | payer OTHER, BC, SELFPAY ==
--- OUTSIDE RECORDS SUMMARY | 2024-05-31 12:32 | XMS_ITS | CCD ---
Author Organization [facility] Care Team Providers Care Floor Refinisher Name Role Phone DR LAURIE LEONARD Attending Unavailable HOY, DR SULLIVAN Consulting Unavailable HOY, DR SULLIVAN Admitting Unavailable HOYLAURIE M Referring Unavailable HOY, LAURIE Zeng Referring Unavailable JULIALUANA Attending Unavailable ARNOLDLIZZETTE Referring Unavailable Mast, Jonn Admitting Unavailable Mast, Jonn Attending Unavailable Mast, Jonn Primary Care Unavailable Pilo DPM, Cachorro Kang Attending Unavailab le Pilo DPM, Cachorro Kang Attending Unavailab le Pilo DPM, Cachorro Kang Consulting Unavailab le Pilo DPM, Cachorro Kang Attending Unavailab le Allergies Allergy Classification Reported Allergen(s) Allergy Type Date of Onset Reaction(s) Facility (2 sources) Penicillin; Translations: [penicillin] Drug Allergy [facility] Repository (1 source) Penicillin Drug Allergy 04-27-2024 [facility] Repository Problems Active Problems Problem Classification Problem [...] Test Name Value Interpretation Reference Range Facility [facility] with reflex to A1Con Albumin [Mass/Vol] 4.3 g/dL Normal 3.5-5.7 [facility] Comment on above: Performed By: #### C BC, CMP wRFX A1C, LIPID, EBS A1C #### [facility] [place] [address] [place] [address] [place] Albumin/Globulin [Mass ratio] 1.7 {ratio} Normal [facility] Comment on above: Performed By: #### C BC, CMP wRFX A1C, LIPID, EBS A1C #### [facility] [place] [address] [place] [id number] [place] ALP [Catalytic activity/Vol] 56 U/L Normal 34-104 [facility] Comment on above: Performed By: #### C BC, CMP wRFX A1C, LIPID, EBS A1C #### [facility] [address] [place] [id number] [place] ALT [Catalytic activity/Vol] 14 U/L Normal 7-52 [facility] Comment on above: Performed By: #### C BC, CMP wRFX A1C, LIPID, EBS A1C #### [facility] [place] [address] [place] [id number] [place] Anion gap [Moles/Vol] 9.7 mmol/L Normal 6.0-15.0 [facility] Comment on above: Performed By: #### C BC, CMP wRFX A1C, LIPID, EBS A1C #### [facility] [place] [address] [place] [id number] [place] AST [Catalytic activity/Vol] 16 U/L Normal 13-39 [facility] Comment on above: Performed By: #### C BC, CMP wRFX A1C, LIPID, EBS A1C #### [facility] [place] [address] [place] [id number] [place] Bilirubin [Mass/Vol] 0.5 mg/dL Normal 0.3-1.0 [facility] Comment on above: Performed By: #### C BC, CMP wRFX A1C, LIPID, EBS A1C #### [place] [address] [place] Calcium [Mass/Vol] 9.8 mg/dL Normal 8.6-10.3 [facility] Comment on above: Performed By: #### C BC, CMP wRFX A1C, LIPID, EBS A1C #### [facility] [place] [address] [place] [address] [place] Chloride [Moles/Vol] 107 mmol/L Normal 98-107 [facility] Comment on above: Performed By: #### C BC, CMP wRFX A1C, LIPID, EBS A1C #### [address] CO2 [Moles/Vol] 30.0 mmol/L Normal 21.0-31.0 [facility] Comment on above: Performed By: #### C BC, CMP wRFX A1C, LIPID, EBS A1C #### [address] Creatinine [Mass/Vol] 0.81 mg/dL Normal 0.60-1.20 [facility] Comment on above: Performed By: #### C BC, CMP wRFX A1C, LIPID, EBS A1C #### [place] [address] [place] GFR/1.73 sq M.predicted MDRD (S/P/Bld) [Vol rate/Area] mL/min/{1.73_m2} Normal [facility] Comment on above: Performed By: #### C BC, CMP wRFX A1C, LIPID, EBS A1C #### [place] [address] [place] Globulin (S) [Mass/Vol] 2.6 g/dL Normal [facility] Comment on above: Performed By: #### C BC, CMP wRFX A1C, LIPID, EBS A1C #### [place] [address] [place] Glucose [Mass/Vol] 101 mg/dL High 70-100 [facility] Comment on above: Result Comment: ADA recommended reference range Performed By: #### C BC, CMP wRFX A1C, LIPID, EBS A1C #### [address] Potassium [Moles/Vol] 4.7 mmol/L Normal 3.5-5.1 [facility] Comment on above: Performed By: #### C BC, CMP wRFX A1C, LIPID, EBS A1C #### [address] Protein [Mass/Vol] 6.9 g/dL Normal 6.4-8.9 [facility] Comment on above: Performed By: #### C BC, CMP wRFX A1C, LIPID, EBS A1C #### [address] Sodium [Moles/Vol] 142 mmol/L Normal 136-145 [facility] Comment on above: Performed By: #### C BC, CMP wRFX A1C, LIPID, EBS A1C #### [address] Urea nitrogen [Mass/Vol] 9 mg/dL Normal 7-25 [facility] Comment on above: Performed By: #### C BC, CMP wRFX A1C, LIPID, EBS A1C #### [address] Complete Blood Count Auto Di ffon 04-27-2024 Basophils (Bld) [#/Vol] 0.0 10*3/uL Normal 0.0-0.2 [facility] Comment on above: Result Comment: PERF ORMED BY: [place] [address] PATHOLOGIST PLANS EXAMINER SANDY ALSTON M.D. Performed By: #### C BC, CMP wRFX A1C, LIPID, EBS A1C #### [address] Basophils/100 WBC (Bld) 0.4 % Normal . [facility] Comment on above: Performed By: #### C BC, CMP wRFX A1C, LIPID, EBS A1C #### [address] Eosinophils (Bld) [#/Vol] 0.1 10*3/uL Normal 0.0-0.45 [facility] Comment on above: Performed By: #### C BC, CMP wRFX A1C, LIPID, EBS A1C #### [address] Eosinophils/100 WBC (Bld) 2.1 % Normal . [facility] Comment on above: Performed By: #### C BC, CMP wRFX A1C, LIPID, EBS A1C #### [address] Erythrocyte distribution width (RBC) [Ratio] 14.2 % Normal 11.9-15.3 [facility] Comment on above: Performed By: #### C BC, CMP wRFX A1C, LIPID, EBS A1C #### [address] Hematocrit (Bld) [Volume fraction] 43.3 % Normal 34.0-46.4 [facility] Comment on above: Performed By: #### C BC, CMP wRFX A1C, LIPID, EBS A1C #### [address] Hemoglobin (Bld) [Mass/Vol] 14.3 g/dL Normal 11.8-15.4 [facility] Comment on above: Performed By: #### C BC, CMP wRFX A1C, LIPID, EBS A1C #### [address] Lymphocytes (Bld) [#/Vol] 2.1 10*3/uL Normal 1.00-4.8 [facility] Comment on above: Performed By: #### C BC, CMP wRFX A1C, LIPID, EBS A1C #### [address] Lymphocytes/100 WBC (Bld) 44.7 % Normal . [facility] Comment on above: Performed By: #### C BC, CMP wRFX A1C, LIPID, EBS A1C #### [address] MCH (RBC) [Entitic mass] 30.7 pg Normal 24.7-34.3 [facility] Comment on above: Performed By: #### C BC, CMP wRFX A1C, LIPID, EBS A1C #### [address] MCV (RBC) [Entitic vol] 93.4 fL Normal 80-100 [facility] Comment on above: Performed By: #### C BC, CMP wRFX A1C, LIPID, EBS A1C #### [address] Mean Corpuscular HGB Conc 32.9 g/dL Normal 32.0-35.0 [facility] Comment on above: Performed By: #### C BC, CMP wRFX A1C, LIPID, EBS A1C #### [address] Monocytes (Bld) [#/Vol] 0.5 10*3/uL Normal 0.0-0.8 [facility] Comment on above: Performed By: #### C BC, CMP wRFX A1C, LIPID, EBS A1C #### [address] Monocytes/100 WBC (Bld) 10.0 % Normal . [facility] Comment on above: Performed By: #### C BC, CMP wRFX A1C, LIPID, EBS A1C #### [address] Neutrophils (Bld) [#/Vol] 2.0 10*3/uL Normal 1.8-7.7 [facility] Comment on above: Performed By: #### C BC, CMP wRFX A1C, LIPID, EBS A1C #### [address] Neutrophils/100 WBC (Bld) 42.8 % Normal . [facility] Comment on above: Performed By: #### C BC, CMP wRFX A1C, LIPID, EBS A1C #### [facility] [place] [address] NRBC% 0.2 /100{WBC} Normal 0-0.5 [facility] Comment on above: Performed By: #### C BC, CMP wRFX A1C, LIPID, EBS A1C #### [facility] [place] [address] Platelet mean volume (Bld) [Entitic vol] 8.4 fL Normal 6.3-10.7 [facility] Comment on above: Performed By: #### C BC, CMP wRFX A1C, LIPID, EBS A1C #### [facility] [place] [address] Platelets (Bld) [#/Vol] 249 10*3/uL Normal 150-450 [facility] Comment on above: Performed By: #### C BC, CMP wRFX A1C, LIPID, EBS A1C #### [address] RBC (Bld) [#/Vol] 4.64 10*6/uL Normal 3.60-5.00 [facility] Comment on above: Performed By: #### C BC, CMP wRFX A1C, LIPID, EBS A1C #### [address] WBC (Bld) [#/Vol] 4.7 10*3/uL Normal 3.8-11.6 [facility] Comment on above: Performed By: #### C BC, CMP wRFX A1C, LIPID, EBS A1C #### [address] EBS A1C with Estimated Elle rodríguezkeven 04-27-2024 Glucose [Mass/Vol] 114 mg/dL Normal [facility] Comment on above: Result Comment: PERF ORMED BY: [place] [address] PATHOLOGIST PLANS EXAMINER SANDY ALSTON M.D. Performed By: #### C BC, CMP wRFX A1C, LIPID, EBS A1C #### [place] [address] HbA1c (Bld) [Mass fraction] 5.6 % Normal 4.3-5.6 [facility] Comment on above: Result Comment: Incr eased risk for diabetes: 5.7 - 6.4 diabetes: >6.4 glycemic control for adults with diabetes: <7.0 Performed By: #### C BC, CMP wRFX A1C, LIPID, EBS A1C #### [address] Lipid Panelon 04-27-2024 Cholesterol [Mass/Vol] 191 mg/dL Normal 140-200 [facility] Comment on above: Result Comment: Chol less than 200 mg/dl low risk Chol 201-239 mg/dl borderline risk Chol 240 mg/dl and greater high risk Performed By: #### C BC, CMP wRFX A1C, LIPID, EBS A1C #### [address] Cholesterol in HDL [Mass/Vol] 67 mg/dL Normal 23-92 [facility] Comment on above: Result Comment: HDL CHOL ATP-III CLASSIFICATION Cardiovascular Risk HDL > or equal to 60 mg/dL LOW HDL < 40 mg/dL HIGH Performed By: #### C BC, CMP wRFX A1C, LIPID, EBS A1C #### [address] Cholesterol.total/ Cholesterol in HDL [Mass ratio] 2.9 {ratio} Normal <5.0 [facility] Comment on above: Result Comment: PERF ORMED BY: [place] [address] PATHOLOGIST PLANS EXAMINER SANDY ALSTON M.D. Performed By: #### C BC, CMP wRFX A1C, LIPID, EBS A1C #### [address] LDL Cholesterol,Calcul ated 102 mg/dL High 0-100 [facility] Comment on above: Result Comment: LDL ATP III CLASSIFICATION LDL less than 100 mg/dL Optimal LDL 100-129 mg/dL Near or above optimal LDL 130-159 mg/dL Borderline high LDL 160-189 mg/dL High LDL greater than 189 mg/dL Very high Performed By: #### C BC, CMP wRFX A1C, LIPID, EBS A1C #### [facility] [address] [place] [id number] [facility] Triglyceride w/Reflex 111 mg/dL Normal 0-149 [facility] Comment on above: Result Comment: TRIG ATP III CLASSIFICATION TRIG less than 150 mg/dL Normal TRIG 150-199 mg/dL Borderline high TRIG 200-500 mg/dL High TRIG greater than 500 mg/dL Very high Standard traceable to the Center for Disease Conrtrol and Prevention (CDC) test method. Performed By: #### C BC, CMP wRFX A1C, LIPID, EBS A1C #### [facility] [address] [place] [id number] [facility] VLDL CHOLESTEROL 22 mg/dL Normal [facility] Comment on above: Performed By: #### C BC, CMP wRFX A1C, LIPID, EBS A1C #### [facility] [place] [address] [place] [id number] [facility] XR KNEE RT MIN 4 VWSon 04-03 [...] Valencia MD on 04/03/2024 3:52 PM Normal [facility] BI MAMMOGRAM SCREENING TOMOS YNTHESIS BILATERALon 05-20-2023 [...] IS VERY IMPORTANT TO YOUR HEALTH. THE [employer] SOCIET[employer] GUIDELINES RECOMMEND THAT WOMEN 40 [...] VERY IMPORTANT TO YOUR HEALTH. THE CURRENT [employer] OF [employer] AND NATIONAL COMPREHENSIVE CANCER [...] by Brennan Nguyen on 01/15/2022 1306 Normal [facility] Manager Cardiovascular US Breast Complete, Righton 01-15-2022 US Breast Complete, Right Please see the mammogram report from this same date Report reported and signed by Brennan Nguyen on 01/15/2022 1307 Normal [facility] Specialist Covid-19 PCR ([facility])on 04-02 SARS-CoV-2 (COVID-19) RNA TUSHAR+probe Ql (Unsp spec) Detected Critically abnormal NOT DETECTED [facility] Comment on above: Result Comment: This test is not yet approved or cleared by the [place] FDA. When there are no FDA-approved or cleared tests available, and other criteria are met, FDA can make tests available under an emergency access mechanism called an Emergency Use Authorization (EUA). The EUA for this test is supported by the [place] of Health and Human Service's (HHS's) declaration [...] longer be used). Performed By: #### C VDTBH #### [facility] [address] [address] [address] Nandini Herbert INFLUENZA A AND B AGon 04-29 INFLUANE SEE BELOW Normal [facility] Comment on above: Result Comment: Nega tive for Flu A protein angiten. Infection due to Flu A cannot be ruled out. Flu A angiten in the sample may be below the detection limit of the test. Performed By: #### I NFLUAB #### [facility] [address] [address] [address] [facility] SEE BELOW Normal [facility] Comment on above: Result Comment: Nega tive for Flu B protein antigen. Infection due to Flu B cannot be ruled out. Flu B antigen in the sample may be below the detection limit of the test. Performed By: #### I NFLUAB #### [facility] [address] [place] [address] Dr. Nandini Herbert INFLUENZA A AG Negative Normal NEGATIVE SEE COMMENT [facility] Comment on above: Performed By: #### I NFLUAB #### [facility] [address] [place] [address] Dr. Nandini Herbert INFLUENZA B AG Negative Normal NEGATIVE SEE COMMENT [facility] Comment on above: Performed By: #### I NFLUAB #### [facility] [address] [place] [address] Dr. Nandini Herbert INTERNAL CONTROLS Within Normal Limits Normal Wi thin Normal Limits [facility] Comment on above: Performed By: #### I NFLUAB #### [facility] [address] [place] [address] Dr. Nandini Herbert Encounters Encounter Date Encounter Type Care Provider Facility Start: 05-28-2024 ambulatory Cachorro Daigle DPM F acility:Ortho/Sport Med Start: 05-17-2024 ambulatory Cachorro Daigle DPM [facility] Start: 04-27-2024 End: 04-27-2024 ambulatory Jonn Mast Facility:[facility] Start: 04-16-2024 End: 04-16-2024 ambulatory Cachorro Daigle DPM Facility[facility] Start: 04-03-2024 End: 04-03-2024 ambulatory LIZZETTE crespo Start: 09-08-2023 End: 09-08-2023 ambulatory LUANA DUMONT Not Available Start: 05-20-2023 End: 05-21-2023 ambulatory LAURIE Zeng HORACIO Not Available Start: 04-29-2021 End: 04-29-[address] LAURIE LEONARD Facility: Payers Date Payer Category Payer Self-pay 2024 Unknown [id number] 2022 Unknown [id number] 2022 Unknown 1970 Unknown [id number] 2.16.84 [id number] 1970 Unknown [id number] 2.16.84 [id number] 1970 Unknown [id number] 2.16.84 [id number] 1970 Unknown [id number] 2.16.84 [id number] 1970 Unknown [id number] 2.16.84 [id number] 1969 Unknown [id number] 2.16.8 [id number] 1970 Unknown [id number] 2.16. [id number] 1970 Unknown [id number] 2.16. [id number] 1970 Unknown [id number] 2.16. [id number] 1959 Unknown [id number] Unknown [id number] 2.16.8 [id number] Clinical Note 04-16-2024 Note Date & Type Note Facility 04-16-2024 Note Chief Complaint New Patient, referral from [facility], right 3-5 toe numbness History of Present [...] remember. Patient relates that they have tried [id number] pain relievers, padding, and modification of shoe [...] bilateral. Protective sensation intact as measured with [place]en monofilament. Gross motor intact bilateral. Achilles [...] spent [45] minutes (more content not included)... [facility] Summary Purpose Family History No Family [...] DATE CREATED AUTHOR AUTHOR'S ORGANIZ ATION 01/30/2022 [facility] DATE CREATED AUTHOR AUTHOR'S ORGANIZ ATION 09/10/2023 [facility] EPIC DATE CREATED AUTHOR AUTHOR'S ORGANIZ ATION 04/05/2024 [facility] DATE CREATED AUTHOR AUTHOR'S ORGANIZ ATION 04/28/2024 [facility] DATE CREATED AUTHOR AUTHOR'S ORGANIZ ATION 05/28/2024 [facility] FOR RECORDS PERTAINING TO PATIENTS WHO [...] RECORDS. [facility] Richard Pauer - [facility]. provides no warranty or guarantee of the accuracy or completeness of information in this document.
--- NOTE | 2024-05-31 12:37 | MR_ITS ---
The [address] [address] Patient Name: SILVIANO MELLO MRN: [facility]:[id number] date: 1970 Sex: F Assigned Patient Location: MRI Current Patient Location: MRI Accession/Order Number: [id number] Exam Date: 05/31/2024 12:45 Report Date: 06/04/2024 17:23 At the request of: LAURIE LEONARD Procedure: MR foot RT wo con EXAM: MR foot RT wo con HISTORY: metatarsalgia of right foot COMPARISON: 03/14/2024 TECHNIQUE: MRI images obtained with multiple sequences. MRI of the right foot without contrast. Sequences obtained by standard department protocol. FINDINGS: No acute bone marrow edema of the metatarsals. Achilles tendon and plantar fascia are intact. No significant degeneration of the joints of the foot or ankle. Lisfranc ligament is intact. Extensor, flexor and peroneal tendons are intact. Anterior and posterior syndesmotic ligaments are intact. Anterior talofibular, posterior talofibular and calcaneofibular ligaments are intact. Distal portions of the extensor and flexor tendons are intact. No significant subcutaneous soft tissue edema about the foot. MR/MR foot RT wo con IMPRESSION: 1. No acute abnormality of the foot to explain the patient's pain. 2. No acute fractures. No acute bone marrow edema. 3. No significant subcutaneous soft tissue edema about the foot. Electronically authenticated by: DENIS MCKEON Date: 06/04/2024 17:23
== END 2024-05-31 12:30 | disposition home or self-care (01) ==
LOC: MRI 12:29
PROVIDERS: PCP Family Medicine; Visit Provider Family Medicine
DX: M77.41 Metatarsalgia, right foot (principal); G57.91 Unspecified mononeuropathy of right lower limb
CPT/HCPCS: 73718

== ENCOUNTER 2024-07-02 16:12 | Outpatient (RCR) | payer OTHER, BC, SELFPAY | END 2024-08-04 11:18 | disposition home or self-care (01) | LOC: PT 16:12 | PROVIDERS: PCP Family Medicine; Visit Provider Orthopaedic Surgery | DX: S83.281D Other tear of lateral meniscus, current injury, right knee, subsequent encounter (principal) | CPT/HCPCS: 97110; 97112; 97161 ==

== ENCOUNTER 2024-09-10 16:07 | Outpatient (REF) | payer OTHER, BC, SELFPAY ==
[2024-09-13 12:12] LABS: Age Gdln ACOG Testing Note (.); HPV Aptima Negative (Negative); IGP, Aptima HPV, rfx 16/18,45 Note (.)
== END 2024-09-10 16:08 | disposition home or self-care (01) ==
LOC: LAB 16:07
PROVIDERS: PCP Family Medicine; Visit Provider Physician Assistant
DX: Z01.419 Encounter for gynecological examination (general) (routine) without abnormal findings (principal)
CPT/HCPCS: 87624; 88175

== ENCOUNTER 2024-09-27 15:31 | Outpatient (RCR) | payer OTHER, BC, SELFPAY | END 2024-10-31 08:45 | disposition home or self-care (01) | LOC: PT 15:31 | PROVIDERS: PCP Family Medicine; Visit Provider Physician Assistant | DX: M22.41 Chondromalacia patellae, right knee (principal); S83.241D Other tear of medial meniscus, current injury, right knee, subsequent encounter; S83.281D Other tear of lateral meniscus, current injury, right knee, subsequent encounter | CPT/HCPCS: 97110; 97112; 97161 ==